=== PATIENT | female | born 1955 | race Caucasian/White ===

== ENCOUNTER 2022-08-05 10:03 | Emergency (ER) | payer BC, SELFPAY ==
[2022-08-05 10:15] VITALS: BP 158/80; PULSE 67; RESP 16; TEMP 36.4; O2SAT 100
[2022-08-05 10:16] VITALS: BP 158/80; PULSE 67; RESP 16; TEMP 36.4; O2SAT 100
--- NOTE | 2022-08-05 10:23 | ED.EAR ---
HPI - Ear Problem General Chief complaint: Ear Stated complaint: Bilateral Ear Irritation Time Seen by Provider: 08/05/22 10:23 Source: patient Mode of arrival: ambulatory Limitations: no limitations History of Present Illness HPI Narrative: 66-year-old female presents with complaint of postnasal drainage, Nasal congestion with sinus pressure. She reports yesterday she woke up dizzy, nauseated and off balance. She took a decongestant that resolved her symptoms. Again this morning she woke up dizzy, nauseated and feeling off balance. She took a decongestant and has not helped. She reports that she recently kept her daughter's counts at her house that always bring on allergy symptoms for her. In the past she has had these symptoms with an ear infection. She reports a history of tinnitus which is increased over the past few days. She also reports some congestion to her ears. She is ambulatory with steady gait. No vomiting. no vision changes. No headache. all systems reviewed and negative except as noted above. Related Data Home Medications Medication Instructions Recorded Confirmed biotin 2,500 mcg capsule 2,500 mcg PO DAILY 08/14/19 08/05/22 vitamin B complex (B 1 tablet PO DAILY 03/24/21 08/05/22 Complex-Vitamin B12 tablet) Allergies Allergy/AdvReac Type Severity Reaction Status Date / Time codeine Allergy Unknown Dizziness Verified 08/05/22 10:16 Review of Systems Review of Systems: CONSTITUTIONAL: Denies fever, chills, or sweats. EYES: Denies visual changes, redness, or discharge. ENT: Reports rhinorrhea, congestion, sinus pressure. Denies sore throat, or otalgia. CARDIOVASCULAR: Denies chest pain, palpitations, or edema. RESPIRATORY: Denies cough or dyspnea. GASTROINTESTINAL: Denies abdominal pain, vomiting, or diarrhea. Reports nausea. GENITOURINARY: Denies dysuria or hematuria. SKIN: Denies rash or itching. MUSCULOSKELETAL: Denies back pain, joint pain, or myalgia. NEUROLOGIC: Denies headache, numbness, or weakness. reports dizziness and feeling off balance. PSYCHIATRIC: Denies anxiety or depression. All other systems reviewed are negative, except as documented in HPI. [facility] Family History Family History Father Family history of Alzheimer's disease, Onset Age: 88 Mother Family history of Alzheimer's disease, Onset Age: 84 Social History Social History (Updated 04/20/22 @ 15:37 by Magalie Her MA) Smoking status: Never smoker Second hand tobacco smoke exposure: No Alcohol intake: current Drinks per week: 2 Substance use: never Lack of Transportation: No Lack of Food: Never True Current Housing: I Have Housing Concerned About Future Housing: No Difficulty Paying Gas/Electric Bills: No Difficulty Paying for Meds: No Currently Unemployed: No Education: Bachelor's Degree Difficulty w/ Childcare or Family Care: No Comments At time of signature, agree with nursing past medical, surgical, social and family history. There is no relevant family history pertinent to the presenting complaint. Exam Narrative: GENERAL: This is a well-nourished, well-developed patient, in no apparent distress. HEAD: normocephalic, atraumatic. EYES: PERRL. Sclera clear/white. Vision is grossly intact. EARS: External ears normal, auditory canals clear and without drainage, Fluid to right TM. Left TM is normal. No erythema or perforation bilaterally. NOSE: External nose normal with Clear nasal drainage. THROAT: Mucous membranes moist, posterior pharynx clear. NECK: Neck supple, non-tender without lymphadenopathy, masses or thyromegaly. CARDIOVASCULAR: Regular rate and rhythm without murmurs, gallops, or rubs. RESPIRATORY: Clear to auscultation. Breath sounds equal bilaterally. No wheezes, rales, or rhonchi. SKIN: warm, Dry, intact with no suspicious lesions or rash, good texture and turgor. NEUR
== END 2022-08-05 10:37 | disposition home or self-care (01) ==
PROVIDERS: Emergency Provider Nurse Practitioner Family; PCP Internal Medicine
DX: R42 Dizziness and giddiness (principal)
CPT/HCPCS: 99213; G0463

== ENCOUNTER 2022-11-16 14:54 | Emergency (ER) | payer BC, SELFPAY ==
[2022-11-16 15:03] VITALS: BP 143/89; PULSE 82; RESP 16; TEMP 36.6; O2SAT 99
[2022-11-16 15:04] VITALS: BP 143/89; PULSE 82; RESP 16; TEMP 36.6; O2SAT 99
--- NOTE | 2022-11-16 15:39 | ED.URI ---
HPI - URI/Sore Throat General Chief Complaint: Upper Respiratory Infection Stated Complaint: drainage; productive cough Time Seen by Provider: 11/16/22 15:32 Source: patient and RN notes reviewed Mode of arrival: ambulatory Limitations: no limitations History of Present Illness HPI Narrative: Patient presents today with a 2 week history of nasal congestion, productive cough, rhinorrhea, fatigue. Denies shortness of breath, fever, sore throat. Denies history of asthma or COPD. She has tried DayQuil, NyQuil, Sudafed, Mucinex, Claritin, Benadryl with occasional relief. Related Data Home Medications Medication Instructions Recorded Confirmed biotin 2,500 mcg capsule 2,500 mcg PO DAILY 08/14/19 11/16/22 vitamin B complex (B 1 tablet PO DAILY 03/24/21 11/16/22 Complex-Vitamin B12 tablet) Allergies Allergy/AdvReac Type Severity Reaction Status Date / Time codeine Allergy Unknown Dizziness Verified 11/16/22 15:04 Review of Systems Review of Systems: CONSTITUTIONAL: Denies body aches, fever, chills, or sweats.+ fatigue EYES: Denies visual changes, redness, or discharge. ENT: + congestion, rhinorrhea. Denies sore throat CARDIOVASCULAR: Denies chest pain, palpitations, or edema. RESPIRATORY: Denies dyspnea.+ cough GASTROINTESTINAL: Denies abdominal pain, nausea, vomiting, or diarrhea. GENITOURINARY: Denies dysuria or hematuria. SKIN: Denies rash, itching, or wounds. MUSCULOSKELETAL: Denies back pain, joint pain, or myalgia. NEUROLOGIC: Denies headache, numbness, tingling, or weakness. PSYCH: Denies depression or anxiety. [facility] Family History Family History Father Family history of Alzheimer's disease, Onset Age: 88 Mother Family history of Alzheimer's disease, Onset Age: 84 Social History Social History Smoking status: Never smoker Second hand tobacco smoke exposure: No Alcohol intake: current Drinks per week: 0 Alcohol use details: occasional Substance use: never Substance use type: does not use Lack of Transportation: No Lack of Food: Never True Current Housing: I Have Housing Concerned About Future Housing: No Difficulty Paying Gas/Electric Bills: No Difficulty Paying for Meds: No Currently Unemployed: No Education: Bachelor's Degree Difficulty w/ Childcare or Family Care: No Comments At time of signature, I have reviewed and agree with nursing past medical, surgical, social and family history unless otherwise noted. Please see nursing chart for further information. There is no relevant family history pertinent to the presenting complaint Exam Narrative: GENERAL: Mildly ill-appearing, well-nourished, and in no acute distress. HEAD: Normocephalic, atraumatic. EYES: EOMI. No redness or drainage. Conjunctivae normal. ENT: Mucous membranes pink and moist. Nares congested. TMs normal bilaterally. Throat normal. Uvula midline. NECK: Normal AROM. Supple. No lymphadenopathy. CHEST: No respiratory distress. Mild inspiratory squeaks throughout, otherwise clear. HEART: Regular rate and rhythm. No murmur appreciated. Normal peripheral pulses. EXTREMITIES: Normal range of motion. No edema. SKIN: Warm, dry, no rash. Capillary refill normal. Normal skin turgor. NEURO: No focal deficits. Alert and oriented x3. Gait steady. PSYCH: Normal affect. No signs of depression or anxiety. Course Course Level of Care: Express Care Visit Vital Signs Vital signs: Vital Signs Temperature 97.9 F 11/16/22 15:03 Pulse Rate 82 11/16/22 15:03 Respiratory Rate 16 11/16/22 15:03 Blood Pressure 143/89 H 11/16/22 15:03 Pulse Oximetry 99 11/16/22 15:03 Oxygen Delivery Room Air 11/16/22 15:03 Temperature 97.9 F 11/16/22 15:04 Pulse Rate 82 11/16/22 15:04 Respiratory Rate 16 11/16/22 15:04 Blood Pressure
== END 2022-11-16 15:52 | disposition home or self-care (01) ==
PROVIDERS: Emergency Provider Nurse Practitioner; PCP Family Medicine
DX: J01.90 Acute sinusitis, unspecified (principal); J40 Bronchitis, not specified as acute or chronic
CPT/HCPCS: 99213; G0463

== ENCOUNTER 2022-12-26 05:59 | Day surgery (SDC) | payer BC, SELFPAY ==
[2022-12-14 15:27] VITALS: BMI 26.9
--- NOTE | 2022-12-24 14:43 | PM.HPGS ---
History of Present Illness History of Present Illness Consent: Risks, benefits, and alternatives have been discussed and questions answered. Patient agrees to proceed with procedure. Chief complaint: hx colon polyps Narrative: Alva Barrera is a 67 year old female With the family history of colon cancer in her mother. She also has had a couple polyps removed 5 years ago. Review of Systems Review of Systems: All systems reviewed & are unremarkable except as noted in HPI and below PMFSH Family History Family History Father Family history of Alzheimer's disease, Onset Age: 88 Mother Family history of Alzheimer's disease, Onset Age: 84 Social History Social History Smoking status: Never smoker Second hand tobacco smoke exposure: No Alcohol intake: current Drinks per week: 0 Alcohol use details: occasional Substance use: never Substance use type: does not use Lack of Transportation: No Lack of Food: Never True Current Housing: I Have Housing Concerned About Future Housing: No Difficulty Paying Gas/Electric Bills: No Difficulty Paying for Meds: No Currently Unemployed: No Education: Bachelor's Degree Difficulty w/ Childcare or Family Care: No Living arrangements: with family Spiritual care concerns: No Meds Home Medications and Allergies Home Medications Medication Instructions Recorded Confirmed Type vitamin B complex (B 1 tablet PO DAILY 03/24/21 12/14/22 History Complex-Vitamin B12 tablet) biotin 5,000 mcg chewable tablet 5,000 mcg PO DAILY 12/14/22 12/14/22 History cholecalciferol (vitamin D3) 50 2,000 unit PO DAILY 12/14/22 12/14/22 History mcg (2,000 unit) capsule meclizine 25 mg tablet 25 mg PO Q6-8H PRN Vertigo 12/14/22 12/14/22 History rosuvastatin 20 mg tablet 20 mg PO DAILY 12/14/22 12/14/22 History Allergies Allergy/AdvReac Type Severity Reaction Status Date / Time codeine AdvReac Intermediate Dizziness,l Verified 12/26/22 06:12 ightheadedn ess Exam Const: General: alert Orientation/consciousness: patient oriented x3 Resp: Auscultation: clear to auscultation bilaterally Cardio: Rhythm: regular rhythm GI: GI Palp: Yes Soft to palpation and No Tenderness to palpation present (GI) Neuro: General: patient oriented x3 Assessment and Plan Assessment and plan (1) Screening for colon cancer: Code(s): Z12.11 - Encounter for screening for malignant neoplasm of colon Status: Resolved Assessment and Plan: Colonoscopy with possible biopsy or polypectomy or cautery or injection of substances.
[2022-12-26 06:13] VITALS: BP 115/75; PULSE 93; RESP 18; TEMP 36.1; O2SAT 98
[2022-12-26] MEDS: LACTATED RINGERS 1,000 ML 150 ML IV CONT (06:23)
--- NOTE | 2022-12-26 07:12 | P.PNAN_ITS ---
Anes - Initial Pre Proc Eval Procedure: Operation Date: 12/26/22 07:30 Proposed Procedures p Colonoscopy - Davon Iraheta MD Date/Time: 12/26/22 07:12 Surgeon: Davon Iraheta MD Pre Op Diagnosis: hx colon polyps Patient Data Age: 67 Gender: F Height: 1.77 m Weight: 83 kg Last Vital Signs Temp 97 F L 12/26/22 06:13 Pulse 93 12/26/22 06:13 Resp 18 12/26/22 06:13 BP 115/75 12/26/22 06:13 Pulse Ox 98 12/26/22 06:13 O2 Del Method Room Air 12/26/22 06:13 Allergies Allergy/AdvReac Type Severity Reaction Status Date / Time codeine AdvReac Intermediate Dizziness,l Verified 12/26/22 06:12 ightheadedn ess Home Medications Medication Instructions Recorded Confirmed Type vitamin B complex (B 1 tablet PO DAILY 03/24/21 12/14/22 History Complex-Vitamin B12 tablet) biotin 5,000 mcg chewable tablet 5,000 mcg PO DAILY 12/14/22 12/14/22 History cholecalciferol (vitamin D3) 50 2,000 unit PO DAILY 12/14/22 12/14/22 History mcg (2,000 unit) capsule meclizine 25 mg tablet 25 mg PO Q6-8H PRN Vertigo 12/14/22 12/14/22 History rosuvastatin 20 mg tablet 20 mg PO DAILY 12/14/22 12/14/22 History Patient hx anesthesia problems: none Family hx anesthesia problems: none Results Review: All pre-operative results and documents have been reviewed as part of the pre- operative evaluation. [facility] Family History Family History Father Family history of Alzheimer's disease, Onset Age: 88 Mother Family history of Alzheimer's disease, Onset Age: 84 Social History Social History Smoking status: Never smoker Second hand tobacco smoke exposure: No Alcohol intake: current Drinks per week: 0 Alcohol use details: occasional Substance use: never Substance use type: does not use Lack of Transportation: No Lack of Food: Never True Current Housing: I Have Housing Concerned About Future Housing: No Difficulty Paying Gas/Electric Bills: No Difficulty Paying for Meds: No Currently Unemployed: No Education: Bachelor's Degree Difficulty w/ Childcare or Family Care: No Living arrangements: with family Spiritual care concerns: No Anes - Eval Final PreProcedure Day of Procedure 12/26/22 07:12 Patient weight: obese Heart: regular rate and rhythm Lungs: clear to auscultation Airway: Mallampati scale class II Neurological: alert and oriented Last oral intake: >/= 8 hours ASA classification: II Emergent: no Anesthetic plan: proceed Anesthesia type and monitoring: general GIVS and standard monitoring Results Review: All pre-operative results and documents have been reviewed as part of the pre- operative evaluation. Informed Consent: The patient's anesthetic plan and its attendant risks and benefits were discussed with the patient/family/POA. Questions were solicited and answers provided to the satisfaction of the patient/family/POA.
[2022-12-26 07:48] VITALS: BP 106/72; PULSE 72; RESP 20; O2SAT 100
[2022-12-26 07:58] VITALS: BP 104/61; PULSE 71; RESP 15; O2SAT 98
[2022-12-26 08:08] VITALS: BP 125/82; PULSE 76; RESP 18; O2SAT 100
== END 2022-12-26 08:19 | disposition home or self-care (01) ==
PROVIDERS: PCP Family Medicine; Visit Provider Internal Medicine Gastroenterology
PROC: 0DJD8ZZ Inspection of Lower Intestinal Tract, Via Natural or Artificial Opening Endoscopic (ICD-10-PCS; CPT 45378; principal; 2022-12-26 07:30)
DX: Z12.11 Encounter for screening for malignant neoplasm of colon (principal); K57.30 Diverticulosis of large intestine without perforation or abscess without bleeding; Z86.010 Personal history of colon polyps; Z80.0 Family history of malignant neoplasm of digestive organs
CPT/HCPCS: 45378; J2704; J7120

== ENCOUNTER 2023-01-10 15:07 | Outpatient (CLI) | payer BC, SELFPAY ==
--- NOTE | ~2023-01-10 | MM_ITS ---
EXAMINATION: MM screening [facility] BI w [facility] HISTORY: Screening TECHNIQUE: Craniocaudal and mediolateral oblique 3-D tomosynthesis images were obtained and synthetic 2-D images were generated. CAD analysis was submitted and interpreted. COMPARISON: Comparison to multiple prior studies sequentially, with oldest reviewed study dated 03/25. BREAST PARENCHYMAL COMPOSITION: Breast composed of scattered areas of fibroglandular density FINDINGS: There is no evidence of suspicious mass, calcification, or architectural distortion to sugg est malignancy in either breast. There has been no suspicious interval change. IMPRESSION: 1. No mammographic evidence of malignancy. 2. Recommend routine screening mammography in one year. BI-RADS Category 1: Negative Reviewed, dictated and finalized at location A.
== END 2023-01-10 15:08 | disposition home or self-care (01) ==
PROVIDERS: PCP Family Medicine; Visit Provider Nurse Practitioner
DX: Z12.31 Encounter for screening mammogram for malignant neoplasm of breast (principal)
CPT/HCPCS: 77063; 77067

== ENCOUNTER 2023-05-31 10:35 | Outpatient (CLI) | payer BC, SELFPAY ==
--- NOTE | ~2023-05-31 | XR_ITS ---
Left Shoulder Technique: AP and axillary views were obtained. Clinical History: Pain Findings: No fracture or dislocation is seen. Osseous alignment is anatomic. The glenohumeral and acr omioclavicular joint spaces are preserved. Soft tissues are unremarkable. Impression: Unremarkable left shoulder radiographs. Reviewed, dictated and finalized at [facility]. BUSINESS ANALYST Impression: Unremarkable left shoulder radiographs.
== END 2023-05-31 10:36 | disposition home or self-care (01) ==
PROVIDERS: PCP Family Medicine; Visit Provider Nurse Practitioner
DX: M25.512 Pain in left shoulder (principal)
CPT/HCPCS: 73030

== ENCOUNTER 2023-12-25 09:22 | Outpatient (CLI) | payer BC, SELFPAY ==
--- NOTE | 2024-01-14 21:57 | WPDSLEEPSTUD ---
Sleep Study Date of Study: 12/25/23 Ordering Provider: Augie Villanueva APRN Interpreting Physician: Gillian Wolfe DO Sleep Study Type: Split Polysomnogram Height: 1.75 m Weight: 79.379 kg Body Mass Index: 25.8 Neck Circumference (inches): 15 [place]: 5 Reason for Sleep Study Witnessed apneas Sleep History The patient is a 68 year old female that had a sleep study ordered by her primary care for evaluation of sleep apnea. The patient denies awakening from sleep short of breath. She rarely awakens at night with heartburn, belching or cough. She constantly snores loudly enough that others complain. She denies waking up gasping for air throughout the night. She frequently has breathing problems at night observed by others. She denies sweating excessively at night. She denies having heart palpitations or irregular heartbeats during the night. She rarely falls asleep during the day but never while driving. She denies sleep paralysis, cataplexy and hypnagogic / hypnopompic hallucinations. She rarely has trouble at school or work due to sleepiness. He denies feeling afraid of going to sleep. She denies having nightmares. She denies remembering her dreams. She occasionally has thoughts racing through her mind. She denies feeling sad or depressed. She rarely has anxiety. She denies having muscular tension. She occasionally notices parts of her body jerk. She denies kicking during the night. She denies having crawling and aching feelings in her legs and denies having leg pain during the night. She denies grinding her teeth during sleep and denies awakening with morning jaw pain. She is rarely bothered by pain during the day but never awakened by pain during the night. She occasionally wakes up feeling stiff in the morning. She denies waking up with sore or achy muscles. She rarely wakes up with pain in the neck, spine and other joints. She goes to bed at 11:00 p.m. on both weekdays and weekends. She is able to fall asleep very quickly. She does not typically wake up throughout the night but if she does it will take her an hour to fall back asleep. She wakes up at 6:00 a.m. on both weekdays and weekends. She typically gets 6-7 hours of sleep per night. She stays in bed for 1 hour in the morning after waking up. She currently lives with her . She denies consuming any caffeinated beverages within 2 hours of bedtime. She will read watch television before falling asleep. She denies taking naps in the afternoon or the evening. She consumes 2 cups of caffeinated beverage every morning. She consumes alcohol rarely. He denies tobacco and recreational drug use. [facility] Family History Family History Father Family history of Alzheimer's disease, Onset Age: 88 Mother Family history of Alzheimer's disease, Onset Age: 84 Social History Social History Smoking status: Never smoker Second hand tobacco smoke exposure: No Alcohol intake: current Drinks per week: 0 Alcohol use details: occasional Substance use: never Substance use type: does not use Lack of Transportation: No Lack of Food: Never True Current Housing: I Have Housing Concerned About Future Housing: No Difficulty Paying Gas/Electric Bills: No Difficulty Paying for Meds: No Currently Unemployed: No Education: Bachelor's Degree Difficulty w/ Childcare or Family Care: No Living arrangements: with family Spiritual care concerns: No Medications Home Medications Medication Instructions Recorded Confirmed Type vitamin B complex (B 1 tablet PO DAILY 03/24/21 11/29/23 History Complex-Vitamin B12 tablet) biotin 5,000 mcg chewable tablet 5,000 mcg PO DAILY 12/14/22 11/29/23 History cholecalciferol (vitamin D3) 50 2,000 unit PO DAILY 12/14/22 11/29/23 History mcg (2,000 unit) caps
[2024-01-15 09:27] VITALS: BMI 25.8
== END 2023-12-26 07:37 | disposition home or self-care (01) ==
LOC: ANHCSM 09:23
PROVIDERS: PCP Nurse Practitioner; Visit Provider Nurse Practitioner
DX: G47.10 Hypersomnia, unspecified (principal); G47.33 Obstructive sleep apnea (adult) (pediatric)
CPT/HCPCS: 95811